=== PATIENT | male | born 1990 | race African-American/Black ===

== ENCOUNTER 2020-05-27 18:44 | Emergency (ER) | payer BC ==
[~2020-05-27] VITALS: Ht 188 cm; Wt 106.6 kg
[2020-05-27] MEDS ORDERED: AUGMENTIN 875-1 EACH PO (19:32)
[2020-05-27 21:02] VITALS: BP 144/70
== END 2020-05-27 21:03 | disposition home or self-care (01) ==
LOC: ER 18:44
DX: S61.250A Open bite of right index finger without damage to nail, initial encounter (principal); S51.852A Open bite of left forearm, initial encounter; S41.152A Open bite of left upper arm, initial encounter; S41.151A Open bite of right upper arm, initial encounter; W54.0XXA Bitten by dog, initial encounter; Y93.89 Activity, other specified; Y92.89 Other specified places as the place of occurrence of the external cause; Y99.8 Other external cause status

== ENCOUNTER 2020-11-28 14:28 | Emergency (ER) | payer BC ==
[~2020-11-28] VITALS: Ht 185.4 cm; Wt 102.1 kg
[~2020-11-28 14:28] MED LIST: AUGMENTIN 875-1 EACH PO
[2020-11-28 15:04] LABS: ABSOLUTE NEUTROPHILS 10.2 thou/uL (1.4-8.2); BASOPHILS 0.3 % (0.0-2.0); EOSINOPHILS 0.5 % (0.0-3.0); HEMATOCRIT 48.6 % (42.0-52.0); HEMOGLOBIN 15.9 gm/dL (14.0-18.0); LYMPHOCYTES 3.3 % (24.0-44.0); MCH 26.4 pg (26.0-34.0); MCHC 32.8 g/dL (28.0-37.0); MCV 80.6 fL (80.0-100.0); MONOCYTES 3.3 % (1.0-8.0); PLATELET COUNT 286 thou/uL (150-400); POLYS 92.6 % (36.0-66.0); RBC 6.03 mil/uL (4.50-6.00); RDW 14.4 % (10.5-14.5); WBC 11.1 thou/uL (4.0-11.0)
[2020-11-28 15:18] LABS: CALCIUM 8.9 mg/dL (8.5-10.1); CREATININE 1.3 mg/dL (0.7-1.3)
[2020-11-28 15:24] LABS: ALBUMIN 4.5 g/dL (3.4-5.0); DIRECT BILIRUBIN 0.1 mg/dL (<0.1-0.2); TOTAL BILIRUBIN 0.7 mg/dL (0.2-1.0); TOTAL PROTEIN 7.9 g/dL (6.4-8.2)
[2020-11-28 16:15] LABS: URINE BILIRUBIN NEGATIVE (Negative); URINE BLOOD NEGATIVE (Negative); URINE CLARITY CLEAR; URINE COLOR YELLOW; URINE GLUCOSE-RANDOM* NEGATIVE (Negative); URINE KETONES NEGATIVE (Negative); URINE LEUKOCYTES-REFLEX NEGATIVE (Negative); URINE NITRITE-REFLEX NEGATIVE (Negative); URINE PROTEIN (DIPSTICK) NEGATIVE (Negative); URINE SPECIFIC GRAVITY >= 1.030 (1.005-1.035); URINE UROBILINOGEN 0.2 E.U./dl (0.2-1.0)
[2020-11-28] MEDS ORDERED: ZOFRAN ODT4 MG PO (17:11)
[2020-11-28 17:44] VITALS: BP 131/61
== END 2020-11-28 17:47 | disposition home or self-care (01) ==
LOC: ER 14:28
PROVIDERS: Emergency Medicine
DX: R11.2 Nausea with vomiting, unspecified (principal); R19.7 Diarrhea, unspecified

== ENCOUNTER 2021-02-28 20:45 | Emergency (ER) | payer OTHER ==
[~2021-02-28] VITALS: Ht 185.4 cm; Wt 108.9 kg
[~2021-02-28 20:45] MED LIST changes: +ZOFRAN ODT4 MG PO
[2021-02-28 22:16] VITALS: BP 140/70
== END 2021-02-28 22:07 | disposition home or self-care (01) ==
LOC: ER 20:45
DX: S80.811A Abrasion, right lower leg, initial encounter (principal); S09.90XA Unspecified injury of head, initial encounter; R42 Dizziness and giddiness; V49.88XA Car occupant (driver) (passenger) injured in other specified transport accidents, initial encounter; Y93.89 Activity, other specified; Y92.413 State road as the place of occurrence of the external cause; Y99.9 Unspecified external cause status